=== PATIENT | male | born 1985 | race African-American/Black ===

== ENCOUNTER 2018-04-20 20:16 | Emergency (ER) | payer SELFPAY ==
[~2018-04-20] VITALS: Ht 180.3 cm; Wt 78.0 kg
[2018-04-21] MEDS ORDERED: IBUPROFEN 600MG TABLET PO ONE (01:15)
[2018-04-21 01:51] LABS: BASOPHILS % 1.3 % (0.0-2.0); EOSINOPHILS % 1.8 % (0.0-5.0); HEMATOCRIT. 25.2 % (42.0-52.0); HEMOGLOBIN. 8.7 g/dL (14.0-18.0); LYMPHOCYTES % 26.3 % (20.0-50.0); MEAN CORPUSCULAR HEMOGLOBIN 28.9 pg (28.0-32.0); MEAN CORPUSCULAR VOLUME 83.2 fL (80.0-94.0); MEAN PLATELET VOLUME 6.3 fl (7.4-10.4); MONOCYTES % 9.7 % (2.0-8.0); NEUTROPHILS % 60.9 % (40.0-76.0); PLATELET 885 x1000/uL (130-400); RED BLOOD CELL COUNT 3.03 mill/uL (4.7-6.1); RED CELL DISTRIBUTION WIDTH 14.8 % (11.6-14.6)
[2018-04-21 05:00] VITALS: BP 120/65
== END 2018-04-21 05:35 | disposition home or self-care (01) ==
LOC: ER 20:44
DX: Z48.00 Encounter for change or removal of nonsurgical wound dressing (principal); D64.9 Anemia, unspecified; M79.605 Pain in left leg; F12.10 Cannabis abuse, uncomplicated; Z87.828 Personal history of other (healed) physical injury and trauma
CPT/HCPCS: 36415; 85025; 93971; 99285